=== PATIENT | female | born 1965 | race Two or more races ===

== ENCOUNTER → 2022-12-29 | Outpatient (CLI) | payer SELFPAY ==
[2022-12-29 12:53] LABS: BASOPHILS ABSOLUTE AUTO 0.08 K/mm3 (0.00-0.23); BASOPHILS PERCENT AUTO 1 % (0-2); EOSINOPHILS ABSOLUTE AUTO 0.25 K/mm3 (0.00-0.68); EOSINOPHILS PERCENT AUTO 3 % (0-6); Hematocrit 39.9 % (33.0-51.0); Hemoglobin 13.3 g/dL (11.5-16.0); IMMATURE GRAN ABSOLUTE AUTO 0.03 K/mm3 (0.00-0.10); IMMATURE GRAN PERCENT AUTO 0 % (0-1); LYMPHOCYTES ABSOLUTE AUTO 2.45 K/mm3 (0.84-5.20); LYMPHOCYTES PERCENT AUTO 32 % (21-46); MONOCYTES PERCENT AUTO 7 % (4-13); Mean Corpuscular HGB Conc 33.3 g/dL (31.5-36.5); Mean Corpuscular Volume 87 fL (80-100); NEUTROPHILS ABSOLUTE AUTO 4.34 K/mm3 (1.96-9.15); NEUTROPHILS PERCENT AUTO 57 % (41-73); RDW Coefficient Variation 13.6 % (11.7-14.2); RDW Standard Deviation 42.6 fL (35.1-46.3); Red Blood Cell Count 4.58 M/mm3 (3.80-5.20); White Blood Cell Count 7.65 K/mm3 (4.00-11.30)
[2022-12-29 12:59] LABS: Mean Platelet Volume 13.4 fL (9.1-12.4)
[2022-12-29 13:01] LABS: Albumin, Blood 3.6 g/dL (3.4-5.0); Albumin/Globulin Ratio 0.8 (0.8-1.8); Bilirubin, Total 0.3 mg/dL (0.1-1.0); Bun/Creatinine Ratio 14.9 (12.0-20.0); Calcium, Blood 8.7 mg/dL (8.5-10.1); Creatinine, Blood 0.67 mg/dL (0.40-1.00); Globulin, Blood 4.5 g/dL (2.2-4.0); Potassium, Blood 3.5 mmol/L (3.5-5.5); Total Protein, Blood 8.1 g/dL (6.4-8.2)
[2022-12-29 13:26] LABS: Platelet Count 179 K/mm3 (150-400)
== END | disposition home or self-care (01) ==
LOC: LAB 12:47 → LAB SHORT 12:47
PROVIDERS: Family Medicine
DX: R10.9 Unspecified abdominal pain (principal)
CPT/HCPCS: 80053; 83690; 85025

== ENCOUNTER 2023-04-19 08:44 | Day surgery (SDC) | payer BC ==
[~2023-04-19] VITALS: Ht 149.9 cm; Wt 75.3 kg
[2023-04-19 11:10] VITALS: BP 112/72
--- NOTE | 2023-04-19 13:35 | NUR ---
04/19/23 Danelle Shelton USED WALL WASHER PHONE SERVICE TO COMMUNICATE WITH PATIENT. WALL WASHER PHONE NUMBER IS , CODE [id number]. PATIENT VERBALIZED UNDERSTANDING OF DISCHARGE INSTRUCTIONS VIA THE INTERPETER. PATIENT HAS MINIMAL PAIN OF OPERATIVE SITE AND STATED IT WAS A TOLERABLE LEVEL. SITTING NEXT TO PATIENT IN RECLINER DURING DISCHARGE INSTRUCTIONS. PATIENT VOIDED PRIER TO DISCHARGE.
== END 2023-04-19 12:44 | disposition home or self-care (01) ==
LOC: ORSCSDS 08:44
PROVIDERS: Surgery
PROC: 0HBT0ZZ Excision of Right Breast, Open Approach (ICD-10-PCS; principal; 2023-04-19 10:00)
DX: D24.1 Benign neoplasm of right breast (principal)
CPT/HCPCS: 88307; 88342; J0690; J1100; J2250; J2371; J2405; J2704; J2795; J3010